=== PATIENT | female | born 1950 | race Caucasian/White ===

== ENCOUNTER 2022-12-04 13:59 | Emergency (ER) | payer OTHER, SELFPAY ==
[2022-12-04 14:12] VITALS: BP 165/77; PULSE 73; RESP 16; TEMP 36.4; O2SAT 100
--- NOTE | 2022-12-04 14:20 | ED.URI ---
HPI - URI/Sore Throat General Chief Complaint: Upper Respiratory Infection Stated Complaint: cough,throat irritation Time Seen by Provider: 12/04/22 14:20 History of Present Illness HPI Narrative: 72-year-old female presented for complaint of ?burning sensation? in the esophagus as well as a frequent nonproductive cough for about 3 weeks. She endorses a history of GERD, stating she cannot take any medication for it because it does nothing for her. States last EGD was about one year ago. She denies associated sinus congestion drainage, shortness of breath or wheezing, n/v/d/f/c. She is not taking anything [id number] for symptoms. Related Data Home Medications Medication Instructions Recorded Confirmed amitriptyline 25 mg tablet 25 mg PO HS 12/04/22 12/04/22 atorvastatin 40 mg tablet 40 mg PO HS 12/04/22 12/04/22 escitalopram oxalate 20 mg tablet 20 mg PO DAILY 12/04/22 12/04/22 lisinopril 20 mg tablet 20 mg PO DAILY 12/04/22 12/04/22 metoprolol succinate 100 mg 100 mg PO DAILY 12/04/22 12/04/22 tablet,extended release 24 hr Allergies Allergy/AdvReac Type Severity Reaction Status Date / Time lidocaine AdvReac Severe Swelling Verified 12/04/22 14:15 Review of Systems Review of Systems: CONSTITUTIONAL: Denies body aches, fever, chills, or sweats. EYES: Denies visual changes, redness, or discharge. ENT: Denies rhinorrhea, congestion, or otalgia. CARDIOVASCULAR: Denies chest pain, palpitations, or edema. RESPIRATORY: Denies dyspnea. GASTROINTESTINAL: Denies abdominal pain, nausea, vomiting, or diarrhea. SKIN: Denies rash, itching, or wounds. MUSCULOSKELETAL: Denies back pain, joint pain, or myalgia. NEUROLOGIC: Denies headache PMFSH Past Medical History Medical History (Updated 12/04/22 @ 14:34 by Magalis Gaston APRN) GERD (gastroesophageal reflux disease) Exam Narrative: GENERAL: well-appearing, no acute distress. EYES: conjunctivae clear ENT: Mucous membranes moist. TM pearly russell with normal light reflex bilaterally; no tragal tenderness. Oropharynx erythematous without lesions, exudate or Tonsillar enlargement. No drooling, no hoarseness, no trismus, uvula midline. No tripod positioning, hot potato voice, or soft palate swelling. NECK: Supple. No lymphadenopathy CHEST: Clear to auscultation, breath sounds equal. 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 No respiratory distress, speaks in full sentences. HEART: Regular rate and rhythm. No murmur heard. SKIN: Warm, dry, no rash. NEURO: Alert and oriented x3. Course Course Emergency Course: Patient is aware of diagnosis, understands and agrees to treatment plan. Anticipatory guidance given. Patient agrees to follow-up as directed and is aware of reasons to seek care at the emergency department. Portions of this record may have been created with voice recognition software Level of Care: Express Care Visit Vital Signs Vital signs: Vital Signs Temperature 97.5 F L 12/04/22 14:12 Pulse Rate 73 12/04/22 14:12 Respiratory Rate 16 12/04/22 14:12 Blood Pressure 165/77 H 12/04/22 14:12 Pulse Oximetry 100 12/04/22 14:12 Oxygen Delivery Room Air 12/04/22 14:12 Temperature 97.5 F L 12/04/22 14:12 Pulse Rate 73 12/04/22 14:12 Respiratory Rate 16 12/04/22 14:12 Blood Pressure 165/77 H 12/04/22 14:12 Pulse Oximetry 100 12/04/22 14:12 Oxygen Delivery Room Air 12/04/22 14:12 MDM - URI/Sore Throat MDM Narrative Medical decision making narrative: Discussed possible etiologies of cough with pt, most likely GERD, and advised PPI. Will send benzonatate and low steroid to take with food, which she states has helped in the past. Advised supportive measures and close f/u with GI and pcp. Reviewed signs/symptoms to go to the ER. Pt is appropriate for outpt treatment. Differential Diagnosis Differential diagnosis: Likely upper respiratory infection, viral infection, bronchitis, pharyngitis and other (gerd, gallbladder disease, pneum
== END 2022-12-04 14:31 | disposition home or self-care (01) ==
PROVIDERS: Emergency Provider Nurse Practitioner Family; PCP Internal Medicine
DX: R05.9 Cough, unspecified (principal); K21.9 Gastro-esophageal reflux disease without esophagitis
CPT/HCPCS: 99213; G0463